=== PATIENT | male | born 1960 | race Caucasian/White ===

== ENCOUNTER 2019-06-28 00:28 | Day surgery (SDC) | payer OTHER ==
[~2019-06-28] VITALS: Ht 170.2 cm; Wt 77.3 kg
--- NOTE | 2019-06-28 01:00 | NUR ---
PT REQUESTING [place] TO RINSE MOUTH, EDP AWARE. PT AWAKE AND ALERT. NO S/S OF ACUTE DISTRESS NOTED.
[2019-06-28 01:48] LABS: BASOPHILS 0.3 % (0-2); EOSINOPHILS 1.5 % (0-7); HEMATOCRIT 44.7 % (42.0-54.0); HEMOGLOBIN 15.4 g/dL (13.5-17.5); IMMATURE GRANULOCYTES 0.3 % (0-5); LYMPHOCYTES 16.5 % (15-50); MCH 33.3 pg (26.0-34.0); MCHC 34.5 g/dL (31.0-37.0); MCV 96.5 fL (80.0-100.0); MEAN PLATELET VOLUME 8.6 fL (7.4-10.4); MONOCYTES 5.3 % (2-11); NEUTROPHILS 76.1 % (40-80); PLATELET COUNT 336 10x3/uL (130-400); RBC 4.63 10x6/uL (4.20-6.10); RDW 12.8 % (11.5-14.5); WBC 11.3 10x3/uL (4.8-10.8)
[2019-06-28 01:55] LABS: CALC OSMOLALITY 291 mosm/kg (275-300); CALCIUM 8.2 mg/dL (8.5-10.1); CARBON DIOXIDE 23.5 mmol/L (21.0-32.0); CHLORIDE - SERUM 110 mmol/L (98-107); GLUCOSE 82 mg/dL (74-106); POTASSIUM - SERUM 4.2 mmol/L (3.5-5.1); SODIUM 146 mmol/L (136-145); UREA NITROGEN 18 mg/dL (7-18); eGFR NON AFRICAN AMERICAN 82 mL/min (90-120)
--- NOTE | 2019-06-28 02:40 | NUR ---
RECEIVED PT FROM ER TRANSFER FROM [facility] WITH ESOPHAGEAL FOOD BOLUS. STATES HE ATE SOME CHICKEN AND IT GOT STUCK IN HIS THROAT. REPORTS THIS HAPPENED 15 YEARS AGO AND HE REQUIRED ESOPHAGEAL DILATATION. HAS HX OF GERD. PT IS A SMOKER. REPORTS DRINKING BEER DAILY. [place] AND [place] FOR WORK. ALERT AND ORIENTED X4. TALKATIVE WITH STAFF BUT REPORTS DIFF SWALLOWING. GAGGING DURING ASSESSMENT AND SMALL AMT OF CLEAR EMESIS NOTED. REPORTS DISCOMFORT IN THROAT AREA AND RATES 6 ON PAIN SCALE. RESP EVEN AND NONLABORED. NS @ 125 ML/HR INFUSING IN LT AC WITHOUT DIFF. AMBULATORY. NO ACUTE DISTRESS. ASKING FOR 7UP. INFORMED HE IS NPO. HE VERBALIZED UNDERSTANDING. SR ELEVATED X2. CL IN REACH.
[2019-06-28 03:13] VITALS: BP 145/76; BMI 26.7
[2019-06-28 04:00] VITALS: BP 145/76
--- NOTE | 2019-06-28 04:57 | NUR ---
LYING IN BED WITH EYES CLOSED. RESP EVEN AND NONLABORED. NO DISTRESS. CL IN REACH.
[2019-06-28 06:15] LABS: ALBUMIN 3.6 g/dL (3.4-5.0); ALKALINE PHOSPHATASE 75 U/L (30-120); ALT (SGPT) 19 U/L (10-68); CALC OSMOLALITY 294 mosm/kg (275-300); CALCIUM 8.3 mg/dL (8.5-10.1); CARBON DIOXIDE 21.2 mmol/L (21.0-32.0); CHLORIDE - SERUM 112 mmol/L (98-107); GLUCOSE 79 mg/dL (74-106); POTASSIUM - SERUM 4.2 mmol/L (3.5-5.1); PROTEIN - SERUM 7.8 g/dL (6.4-8.2); SODIUM 148 mmol/L (136-145); UREA NITROGEN 19 mg/dL (7-18); eGFR NON AFRICAN AMERICAN 82 mL/min (90-120)
--- NOTE | 2019-06-28 07:15 | NUR ---
PT LEFT FOR EGD VIA BED.
--- NOTE | 2019-06-28 08:13 | NUR ---
RECEIVED REPORT FROM REC[facility]ERY AND THEY TSATED DR. CRUZ PUSHED IT(FOOD) ON THROUGH. PT RECEIVED AT THE BEGINNIG OF THE CASE 100MCG FENTANYL AND 4MG ZOFRAN AND HAS NOT RECEIVED ANYTHING ELSE. LAST VS BP 104/73 TEMP. 99.7 TEMPORAL AND O2 SAT 94% ON ROOM AIR.
--- NOTE | 2019-06-28 08:20 | NUR ---
PT RETURNED FROM PROCEDURE VIA BED. ALERT AND ORIENTED. ON ROOM AIR. VS STBALE. PT STATES HE HAS NO FURTHER NEEDS AT THIS TIME. BED LOW. CL IN REACH. WILL CONTINUE TO MONITOR.
--- NOTE | 2019-06-28 10:33 | NUR ---
I have reviewed this patient and I concur with the Shift Assessment completed by the Licensed Practical Nurse today this shift.
[2019-06-28 12:04] VITALS: BP 181/92
[2019-06-28 14:02] VITALS: Ht 170.2 cm; Wt 77.3 kg
[2019-06-28] MEDS ORDERED: PROTONIX40 MG PO (14:02)
[2019-06-28] MEDS ORDERED: CARAFATE1 G/10 ML PO (14:03)
--- NOTE | 2019-06-28 14:59 | NUR ---
UPON ADMIT, PATIENT HAS NOT HAD A FLU SHOT. WHEN QUESTIONED, PATIENT TO REFUSE IT.
--- NOTE | 2019-06-28 15:15 | NUR ---
LEFT AC20G IV DC'D WITH [facility] INTACT. DISCHARGE INSTRUCTIONS GIVEN TO PT. PT HAS NO FURTHER QUESTIONS. CHART COPY SIGNED. PT TO CALL [facility] FOR RIDE HOME.
--- NOTE | 2019-06-28 15:34 | NUR ---
PT TAKEN DOWN VIA WC BY VOLUNTEER AND LEFT IN [facility].
--- NOTE | 2019-06-29 08:13 | MORECARE ---
CASE MANAGEMENT DISCHARGE SUMMARY PATIENT: GERARDO AU UNIT: [id number] ADM DATE: 06/28/19 AGE: 59 : 64 SEX: M ROOM/BED: D.2133 AUTHOR: KAROLINA ALEJANDRE PHYSICIAN: REFERRING PHYSICIAN: THOM GUTHRIE MD DATE OF SERVICE: 06/29/19 Discharge Plan Patient Name: GERARDO AU Facility: [facility]:[place] : 1960 Planned Disposition: Home Anticipated Discharge Date: 06/28/19 Discharge Date: 06/28/2019 Expected LOS: 1 Initial Reviewer: [email or web address] Initial Review Date: 06/29/2019 Generated: 06/29/19 9:13 am Patient Name: GERARDO AU Page [phone] at 0813 All edits/amendments must be made on the electronic document DICTATION DATE: 06/29/19812 MOSAIC TILER: MONIK 06/29/19812 RPT#: [id number] DC DATE:06/28/19 STATUS: DIS IN [facility] [address] [place] [address] END OF REPORT
--- NOTE | 2019-06-29 08:22 | MORECARE ---
CASE MANAGEMENT DISCHARGE SUMMARY PATIENT: GERARDO AU UNIT: [id number] ADM DATE: 06/28/19 AGE: 59 : 64 SEX: M ROOM/BED: D.2133 AUTHOR: KAROLINA ALEJANDRE PHYSICIAN: REFERRING PHYSICIAN: THOM GUTHRIE MD DATE OF SERVICE: 06/29/19 Discharge Plan Patient Name: GERARDO AU Facility: [facility]:[place] : 1960 Planned Disposition: Home Anticipated Discharge Date: 06/28/19 Discharge Date: 06/28/2019 Expected LOS: 1 Initial Reviewer: [email or web address] Initial Review Date: 06/29/2019 Generated: 06/29/19 9:22 am Last DP export: 06/29/19 7:13 a Patient Name: GERARDO AU Page [phone] at 0822 All edits/amendments must be made on the electronic document DICTATION DATE: 06/29/19821 MEDICAL PRACTICE ADMINISTRATOR: MONIK 06/29/19821 RPT#: [id number] DC DATE:06/28/19 STATUS: DIS IN [facility] [address] [place] [address] END OF REPORT
== END 2019-06-28 15:35 | disposition home or self-care (01) ==
LOC: OBSVTIME → D.ER 00:28 → D.OPS 00:28 → OBSVTIME 01:25 → D.ER 01:25 → D.M2 01:25 → D.ER 02:29 → EDSTATUS 15:15 → D.OPS 15:35 → D.M2 15:35
PROVIDERS: Emergency Medicine; ATTEND Internal Medicine Nephrology
DX: T18.128A Food in esophagus causing other injury, initial encounter (principal); E87.0 Hyperosmolality and hypernatremia; N17.9 Acute kidney failure, unspecified; F17.203 Nicotine dependence unspecified, with withdrawal; F10.10 Alcohol abuse, uncomplicated